=== PATIENT | male | born 1990 | race Hispanic/Latino ===

== ENCOUNTER 2018-05-08 19:51 | Emergency (ER) | payer OTHER ==
[~2018-05-08] VITALS: Ht 172.7 cm; Wt 72.7 kg
[2018-05-08] MEDS ORDERED: PANTOPRAZOLE 40MG INJ (PROTONIX) (C9113) IV ONE (20:45)
[2018-05-08] MEDS ORDERED: ONDANSETRON 4MG/2ML VIAL (J2405) IV ONE (20:45)
[2018-05-08] MEDS ORDERED: KETOROLAC 30 MG/ML VIAL (J1885) IV ONE (20:45)
[2018-05-08 21:06] LABS: BASO % 0.5 % (0.0-1.0); EOS # 0.2 10^3/uL (0.0-0.50); EOS % 2.6 % (0.0-3.0); HEMATOCRIT 47.6 % (42.0-52.0); LYMPH # 1.5 10^3/uL (1.5-6.5); LYMPH % 25.3 % (24.0-44.0); MEAN CORPUSCULAR HEMOGLOBIN 29.9 pg (27.0-33.0); MEAN CORPUSCULAR HGB CONC 33.6 g/dl (32.0-36.5); MONO # 0.5 10^3/uL (0.0-0.8); MONO % 9.4 % (0.0-5.0); NEUTROPHILS # 3.6 10^3/uL (1.8-7.7); PLATELET COUNT, AUTOMATED 193 10^3/uL (150-450); RED BLOOD COUNT 5.35 10^6/uL (4.30-6.10); WHITE BLOOD COUNT 5.8 10^3/uL (4.0-10.0)
[2018-05-08 21:29] LABS: ALBUMIN 3.8 GM/DL (3.2-5.2); ALT/SGPT 54 U/L (12-78); BILIRUBIN,DIRECT 0.2 MG/DL (0.0-0.2); BILIRUBIN,TOTAL 0.7 MG/DL (0.2-1.0); BLOOD UREA NITROGEN 13 MG/DL (7-18); CALCIUM LEVEL 8.2 MG/DL (8.5-10.1); CARBON DIOXIDE LEVEL 31 MEQ/L (21-32); CHLORIDE LEVEL 106 MEQ/L (98-107); CREATININE FOR GFR 0.96 MG/DL (0.70-1.30); GLOMERULAR FILTRATION RATE > 60.0 (>60); GLUCOSE, FASTING 77 MG/DL (70-100); LIPASE 54 U/L (73-393); POTASSIUM SERUM 4.5 MEQ/L (3.5-5.1); SODIUM LEVEL 142 MEQ/L (136-145); TOTAL PROTEIN 7.3 GM/DL (6.4-8.2)
[2018-05-08] MEDS ORDERED: ISOVUE-370 76% 100ML VIAL (Q9967) As Ordered ONE (22:03)
--- NOTE | 2018-05-08 23:19 | REPVR ---
EXAM: CT Abdomen and Pelvis With Contrast EXAM DATE/TIME: 05/08/2018 10:30 PM CLINICAL HISTORY: 27 years old, male; Pain; Abdominal pain; Additional info: Left abd pain TECHNIQUE: Axial computed tomography images of the abdomen and pelvis with intravenous contrast. All CT scans at this facility use at least one of these dose optimization techniques: automated exposure control; mA and/or kV adjustment per patient size (includes targeted exams where dose is matched to clinical indication); or iterative reconstruction. Coronal and sagittal reformatted images were created and reviewed. CONTRAST: Contrast Material: 100 ml of ISOVUE 370; Contrast Route: IV COMPARISON: No relevant prior studies available. FINDINGS: Lower thorax: No acute findings. ABDOMEN: Liver: There is a diffuse decrease in hepatic parenchymal density, consistent with fatty infiltration. Gallbladder and bile ducts: There has been a cholecystectomy. Pancreas: Normal. No ductal dilation. Spleen: Normal. No splenomegaly. Adrenals: Normal. No mass. Kidneys and ureters: Right renal cyst measures 3 centimeters. Stomach and bowel: Normal. No obstruction. No mucosal thickening. Appendix: No evidence of appendicitis. PELVIS: Bladder: Unremarkable as visualized. Reproductive: Unremarkable as visualized. ABDOMEN and PELVIS: Intraperitoneal space: Normal. No free air. No significant fluid collection. Bones/joints: No acute fracture. No dislocation. Soft tissues: Unremarkable. Vasculature: Normal. No abdominal aortic aneurysm. Lymph nodes: Normal. No enlarged lymph nodes. IMPRESSION: 1. There is a diffuse decrease in hepatic parenchymal density, consistent with fatty infiltration. 2. There has been a cholecystectomy. 3. Right renal cyst measures 3 centimeters. Electronically signed by: Aman Anne On 05/08/2018 23:19:09 PM
[2018-05-08] MEDS ORDERED: ONDA4TAB6 PO (23:33)
[2018-05-09 00:12] VITALS: BP 124/62
== END 2018-05-09 00:13 | disposition home or self-care (01) ==
LOC: M ED 19:51
DX: R11.10 Vomiting, unspecified (principal); R19.7 Diarrhea, unspecified; K76.0 Fatty (change of) liver, not elsewhere classified
CPT/HCPCS: 74177; 80048; 80076; 81001; 83690; 85025; 96374; 96375; 99284; C9113; J1885; J2405; Q9967